=== PATIENT | female | born 1990 | race American Indian/Alaskan Native ===

== ENCOUNTER 2016-03-16 21:49 | Emergency (ER) | payer MEDICAID ==
[2016-03-17 01:38] LABS: Hematocrit 42.4 % (30.3-42.9); Hemoglobin 14.3 gm/dl (10.1-14.3); Mean Corpuscular HGB Conc 34 % (30-34); Mean Corpuscular Hemoglobin 27 pg (28-32); Mean Corpuscular Volume 81 fl (79-97); Platelet Count 304 K/mm3 (140-440); Red Blood Count 5.22 M/mm3 (3.65-5.03); Red Cell Distribution Width 13.7 % (13.2-15.2); White Blood Count 10.5 K/mm3 (4.5-11.0)
[2016-03-17 01:46] LABS: Blood Urea Nitrogen 6 mg/dL (7-17); Calcium 9.2 mg/dL (8.4-10.2); Carbon Dioxide 25 mmol/L (22-30); Chloride 100.7 mmol/L (98-107); Glucose 98 mg/dL (65-100); Sodium 139 mmol/L (137-145)
[2016-03-17 01:48] LABS: Anion Gap 17 mmol/L
--- NOTE | 2016-03-17 08:26 | Emergency Department Report ---
HPI - General Chief Complaint: Chest Pain Time Seen by Provider: 03/17/16 08:17 - HPI HPI: Chief complaint: Sore throat, fever, productive cough HPI: Patient is 25-year-old female with a history of hyperthyroidism on atenolol and methimazole states that she's been having a cold for the last 4 days. Patient began running a fever and having a sore throat for the last several days. Patient states her fever went to 103.8 and she had some chills so she came to the emergency department last night. Patient has children but none of them have been sick. Mode of arrival: private car Source: Patient old chart Began: 4 days ago Duration: 4 days Context: See above Quality: Sore throat Severity: Moderate Improved with: Fever improved with Motrin Worsened with: Swallowing Associated signs and symptoms: Productive cough with yellow sputum and pleuritic chest pain with coughing. ED Past Medical Hx - Past Medical History Hx Hypertension: Yes (during and after 6 months) Hx Asthma: Yes Additional medical history: Hyperthyroidism - Surgical History Additional Surgical History: pylonidal cyst removed, - Social History Smoking Status: Current Every Day Smoker Substance Use Type: None - Medications Home Medications: Home Medications Medication Instructions Recorded Confirmed Last Taken Type Atenolol [Tenormin] 50 mg PO DAILY 08/18/15 10/06/15 10/06/15 History 0400 traMADol [Ultram 50 MG tab] 50 mg PO Q4HR PRN #10 tablet 03/17/16 Unknown Rx ED Review of Systems ROS: Stated complaint: SORE THROAT/BREATHING PAIN Other details as noted in HPI ROS Constitutional: fever ENT: No uri symptoms Cardiovascular: Pleuritic chest pain Respiratory: See HPI GI: No nausea vomiting or diarrhea : No dysuria frequency or urgency, Skin: No rash Neuro: No focal weakness or numbness Psych: No depression [place]/lymph: No edema Physical Exam - Physical Exam Vital Signs: Vital Signs 03/17/16 00:58 Temperature 98.2 F Pulse Rate 70 Respiratory 20 Rate Blood Pressure 135/91 O2 Sat by Pulse 100 Oximetry Physical Exam: GENERAL: The patient is well-developed well-nourished . HEENT: Normocephalic. Atraumatic. Extraocular motions are intact. Patient has moist mucous membranes. Erythematous slightly enlarged tonsils with several areas of purulence and superficial ulceration. NECK: Supple. No meningitic signs are noted. There is no adenopathy noted. CHEST/LUNGS: Clear to auscultation. There is no respiratory distress noted. HEART/CARDIOVASCULAR: Regular. There is no tachycardia. There is no gallop rub or murmur. ABDOMEN: Abdomen is soft, nontender. Patient has normal bowel sounds. There is no abdominal distention. SKIN: There is no rash. There is no edema. There is no diaphoresis. NEURO: The patient is awake, alert, and oriented. The patient is cooperative. The patient has no focal neurologic deficits. The patient has normal speech. MUSCULOSKELETAL: There is no tenderness or deformity. There is no limitation range of motion. There is no evidence of acute injury. ED Course Vital Signs 03/17/16 00:58 Temperature 98.2 F Pulse Rate 70 Respiratory 20 Rate Blood Pressure 135/91 O2 Sat by Pulse 100 Oximetry - Reevaluation(s) Reevaluation #1: 03/17/16 08:43 Given [place] 5 for her sore throat. ED Medical Decision Making - Lab Data Result diagrams: 03/17/16 01:14 03/17/16 01:14 Laboratory Tests 03/17/16 03/17/16 03/17/16 01:14 04:18 07:09 Troponin T < 0.010 < 0.010 < 0.010 Strep screen was positive - EKG Data -: EKG Interpreted by Me EKG shows normal: sinus rhythm Rate: normal (87) - EKG Data When compared to previous EKG there are: no significant change Interpretation: normal EKG Critical care attestation.: If time is entered above; I have spent that time in minutes in the direct care of this critically ill patient, excluding procedure time. ED Disposition Clinical Impression: Bronchitis Pharyngitis Qualifiers: Pharyngitis/tonsillitis etiology: streptococcus Qualified Code(s): J02.0 - Streptococcal pharyngitis Disposition: DISCHARGED TO HOME OR SELFCARE Is pt being admited?: No Does the pt Need Aspirin: No Condition: Stable Instructions: Acute Bronchitis (ED), Strep Throat (ED) Prescriptions: traMADol [Ultram 50 MG tab] 50 mg PO Q4HR PRN #10 tablet PRN Reason: Pain Time of Disposition: 09:03
[2016-03-17] MEDS ORDERED: NORCO 5/325 PO ONE (08:42)
[2016-03-17] MEDS ORDERED: BICILLIN L-A IM ONE (09:03)
[2016-03-17 09:43] VITALS: BP 160/90
== END 2016-03-17 09:44 | disposition home or self-care (01) ==
LOC: ED 21:49
DX: J40 Bronchitis, not specified as acute or chronic (principal); J02.0 Streptococcal pharyngitis; I10 Essential (primary) hypertension; J45.909 Unspecified asthma, uncomplicated; E05.90 Thyrotoxicosis, unspecified without thyrotoxic crisis or storm; F17.200 Nicotine dependence, unspecified, uncomplicated
CPT/HCPCS: 36415; 80048; 84484; 85025; 87430; 93005; 93010; 96372; 99284; J0561

== ENCOUNTER 2019-04-20 13:12 | Emergency (ER) | payer MEDICAID | END 2019-04-21 03:44 | LOC: ED 13:12 | DX: O26.891 Other specified pregnancy related conditions, first trimester (principal); Z53.21 Procedure and treatment not carried out due to patient leaving prior to being seen by health care provider ==

== ENCOUNTER 2019-08-31 17:26 | Outpatient (CLI) | payer MEDICAID ==
[2019-08-31] MEDS ORDERED: LACTATED RINGERS 1,000 ML IV SCH (18:00)
[2019-08-31 18:05] VITALS: BP 133/74
[2019-08-31 18:08] LABS: Bacteria,Urine 1+ /HPF (Negative); Mucus,Urine 2+ /HPF
[2019-08-31 18:14] LABS: Bilirubin,Urine NEG (Negative); Blood,Urine NEG (Negative); Color,Urine Yellow (Yellow); Protein,Urine <15 mg/dL mg/dL (Negative); Urobilinogen,Urine < 2.0 mg/dL (<2.0)
[2019-08-31] MEDS ORDERED: ONDANSETRON 4 MG/2 ML INJ IV PRN (19:08)
== END 2019-08-31 19:25 | disposition home or self-care (01) ==
LOC: TRG 17:26 → APU 17:28 → TRG 19:25
PROVIDERS: ATTEND Obstetrics & Gynecology
DX: O21.2 Late vomiting of pregnancy (principal); O26.893 Other specified pregnancy related conditions, third trimester; R25.2 Cramp and spasm; M54.9 Dorsalgia, unspecified; R07.9 Chest pain, unspecified; O47.03 False labor before 37 completed weeks of gestation, third trimester; O99.513 Diseases of the respiratory system complicating pregnancy, third trimester; J45.909 Unspecified asthma, uncomplicated; O13.3 Gestational [pregnancy-induced] hypertension without significant proteinuria, third trimester; Z3A.29 29 weeks gestation of pregnancy; Z87.891 Personal history of nicotine dependence
CPT/HCPCS: 59025; 81001; 96361; 96365; J2405; J7120; 96360; 96374